=== PATIENT | male | born 1970 | race Caucasian/White ===

== ENCOUNTER 2020-08-31 10:21 | Emergency (ER) | payer BC ==
[2020-08-31] MEDS ORDERED: Lidocaine 2% PF 5 ML VIAL ONE (11:10)
[2020-08-31] MEDS ORDERED: Lidocaine 1% PF 5 ML VIAL ONE (11:10)
== END 2020-08-31 12:48 | disposition home or self-care (01) ==
LOC: CSHERS 10:21
DX: L03.012 Cellulitis of left finger (principal)
CPT/HCPCS: 10061; J2001